=== PATIENT | female | born 1975 | race Caucasian/White ===

== ENCOUNTER 2020-01-29 06:13 | Emergency (ER) | payer SELFPAY ==
--- NOTE | 2020-01-29 06:28 | EDM.PDOC ---
<Giovani Kelly - Last Filed: 01/29/20 06:48> ED HPI GENERAL MEDICAL PROBLEM - General Chief Complaint: Chest Pain Stated Complaint: SHORTNESS OF BREATH, CHEST PAIN Time Seen by Provider: 01/29/20 06:18 - History of Present Illness INITIAL COMMENTS - FREE TEXT/NARRATIVE: History of present illness: [] The patient reports chest pain. About 8 PM last night she started having stabbing chest pain that lasted as long as 10 minutes. The in the right side of her chest and stab to her chest like somebody poking knife through her. They are associated with diaphoresis nausea and shortness of breath. She was going to wait and see how it went but when she talk to her boss about the possibility of taking a day off her boss said she probably should come to the emergency room. This made her more anxious now she is quite excited about the possibility this might be her heart. Coronary vessel risk the patient has a grandfather had heart attacks in his 40s. The patient was a smoker until 2 or 3 years ago. The patient is not diabetic and not treated for hypertension or high cholesterol. She has moderate amount of stress in her life but not particularly more lately and she sleeps pretty well from 8 PM till about 4 AM when she is going to work and longer if she is not going to work. [place] in terms of thromboembolic risk there is no family or personal history of thromboembolic disease. She has not had any recent immobilization cast surgery she is not on exogenous hormones and she is not smoking for 3 years. Review of systems: As per history of present illness and below otherwise all systems reviewed and negative. Past medical history: As per history of present illness and as reviewed below otherwise noncontributory. Surgical history: As per history of present illness and as reviewed below otherwise noncontributory. Social history: No reported history of drug or alcohol abuse. Family history: As per history of present illness and as reviewed below otherwise noncontributory. Physical exam: Constitutional - well developed, well-nourished and in no acute distress HEENT - normocephalic, no evidence of trauma - external nose and mouth normal - no mass in neck and no JVD - mucosae moist EYES - full EOM, PERRL, no icterus - no evidence of inflammation, injection, or drainage Respiratory -left sternal borders reproduces her pain. No respiratory distress, equal bilateral expansion, lungs clear to auscultation and no abnormal lung sounds Cardiovascular - Regular Rhythm with S1 and S2 appreciated and no murmur, gallop or rub. GI - abdomen soft without distension or organomegaly - normal bowel sounds - no guard or rebound Musculoskeletal no gross deformity of long bones or joints - no tenderness, swelling or edema Neurologic - Alert and oriented times four - CN II-XII grossly intact - motor sensory and coordination symmetrically normal Psychiatric - appropriate mood and affect with normal thought content Hematologic - No petechiae or purpura - mucosa appropriate color and sclera not pale - normal nail bed color and refill Integument - no rash or evidence of trauma - normal turgor Diagnostics: [] ED troponin D-dimer and chest x-ray will be done. Therapeutics: [] Ketorolac will be given for this inflammatory chest wall pain Impression: [] It is my impression that she has costochondritis Plan: [] Plan to do lab work EKG chest x-ray and consider in the differential coronary vessel disease pleurisy pneumothorax. Definitive disposition and diagnosis as appropriate pending reevaluation and review of above. The work-up has been initiated and EKG evaluated. The rest of the work-up is pending at the time of the end of my shift and I turned the patient over to my partner Dr. Franklin. Please see his notes regarding further work-up treatment and disposition. Chest Pain Score (Numeric/FACES): 4 - Related Data Allergies Allergy/AdvReac Type Severity Reaction Status Date / Time ampicillin Allergy Rash Verified 01/29/20 06:39 Home Meds: Home Meds . 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 RADIO ELECTRICIAN History: states has hemmorage after vaginal delivery Musculoskeletal History: Reports: Other (See Below) Other Musculoskeletal History: Chronic shoulder pain Neurological History: Reports: Migraines Other Neuro History: has sinus headaches from allergies Psychiatric History: Reports: Depression Other Psychiatric History: states not currently depressed (history of depression/anxiety) Hematologic History: Reports: Anemia, Blood Transfusion(s) Other Hematologic History: states is currently anemic, hx of blood transfusion after vaginal delivery - Infectious Disease History Infectious Disease History: Reports: Chicken Pox - Past Surgical History Head Surgeries/Procedures: Reports: None HEENT Surgical History: Reports: None Cardiovascular Surgical History: Reports: None GI Surgical History: Reports: Appendectomy, Cholecystectomy Female Surgical History: Reports: Oophorectomy Neurological Surgical History: Reports: None Musculoskeletal Surgical History: Reports: None Social & Family History - Family History Family Medical History: No Pertinent Family History #1 Interpretation EKG Interpretation Comments: EKG done 01/29/2020 at 6:24 AM and read reported at 6:26 AM tachycardia heart rate 100 Geneva XII 84 IA interval 150 QT 494 late transition R wave in the precordium and ST and T-segment are negative and normal. No prior for comparison. Impression no obvious acute DC Departure - Departure Disposition: Home, Self-Care 01 Clinical Impression: Atypical chest pain - Discharge Information Instructions: Nonspecific Chest Pain, Adult Referrals: [facility] - Family Practice [Provider Group] - 1 Week (For follow-up of chest pain.) Forms: ED Department Discharge Additional Instructions: You were seen in the emergency department for chest pain. At this point your blood work, EKGs, and x-rays look reassuring. I do not see a dangerous explanation or life-threatening cause of your chest pain at this point and I am comfortable letting you go home. I do want you to follow closely with your primary doctor or our family medicine clinic in the next week or so for reevaluation. You can take [id number] acetaminophen or ibuprofen as directed on the package for pain. Warning signs to come back to the ER include: Worsening chest pain, shortness of breath, lightheadedness, loss of consciousness, or any other new or concerning symptoms. Please return the emergency department immediately if your symptoms worsen or if you feel worse. Thank you for choosing the [facility] emergency department in [place] for your medical needs today. It was a pleasure caring for you. The following information is given to patients seen in the emergency department who are being discharged. This information is to outline your options for follow-up care. We provide all patients seen in our emergency department with a follow-up referral. The need for follow-up, as well as the timing and circumstances, are variable depending upon the specifics of your emergency department visit. If you don't have a primary care physician on staff, we will provide you with a referral. We always advise you to contact your personal physician following an emergency department visit to inform them of the circumstance of the visit and for follow-up with them and/or the need for any referrals to a consulting specialist. The emergency department will also refer you to a specialist when appropriate. This referral assures that you have the opportunity for follow-up care with a specialist. All of these measure are taken in an effort to provide you with optimal care, which includes your follow-up. Under all circumstances we always encourage you to contact your private physician who remains a resource for coordinating your care. When calling for follow-up care, please make the office aware that this follow-up is from your recent emergency room visit. If for any reason you are refused follow-up, please contact the [facility] Emergency Department at and asked to speak to the emergency department charge nurse. If you do not have a primary care physician that is caring for you, you can contact these clinics below to set up an appointment to establish care: [facility] - Primary Care [address] [place] [id number] [place] [address] <Selvin Franklin - Last Filed: 01/29/20 11:27> ED ROS GENERAL - Review of Systems Review Of Systems: See Below ED EXAM, GENERAL - Physical Exam Exam: See Below #2 Interpretation EKG Interpretation Comments: 12-Lead ECG Interpretation Acquired: 10:57 AM Rhythm: Sinus rhythm Rate: 75 bpm Geneva: Normal Intervals: Normal Ectopy: None RV Strain: No obvious RV strain pattern. ST Segments/T-Waves: T wave inversions in V2, seen on previous ECG. Acute Ischemic Changes: None apparent Interpretation: No STEMI Course - Vital Signs Text/Narrative:: I assumed care of this patient at [address] Kelly. In brief, this is a 44-year-old female with a past medical history of migraines presenting with chest pain. Noted to be mildly tachycardic but not hypoxic. Onset of chest pain is around 8:00 last night, described as stabbing and lasting for about 10 minutes at a time, intermittent. Located to the right side of the chest. There is a family history of premature coronary artery disease/DC. Patient was a smoker until a few years ago. Work-up in progress include CBC, CMP, D-dimer, troponin, chest x-ray, twelve-lead EKG. Patient given 15 mg of IV Toradol before I assumed care. I reviewed the twelve-lead EKG, I agree it shows no acu te ischemia. Differential diagnosis includes but is not limited to: ACS, pulmonary embolism, aortic dissection, acute systolic heart failure, pneumonia, pneumothorax, pericardial effusion, pleural effusion, pericarditis, endocarditis, esophageal rupture, GERD, drug-induced chest pain, chest wall pain, and many others. 741: Chest x-ray shows no acute findings and no significant change from prior. CBC shows normal cell lines. I ordered 162 mg of aspirin chewable since the patient has already received ketorolac IV. 752: D-dimer negative. 806: Troponin is negative, electrolytes and renal function are reassuring. We are going to obtain a second 3-hour delta troponin and ECG. 1044: Work-up is essentially negative at this point. Patient has 2 negative troponins. She had two twelve-lead EKGs which did not show an ischemic pattern. She is low risk by the HEART pathway. At this point there is no objective evidence of myocardial ischemia. Negative D-dimer with reassuring vital signs makes pulmonary embolism unlikely. There is no evidence of any pulmonary infiltrate and I have a low suspicion for pneumonia or infection. Chest pain does not radiate to the back and the description of the pain and her overall clinical picture not concerning for either thoracic aortic dissection, Boerhaave syndrome, or congestive heart failure. Her twelve- lead EKG does not exhibit electrical alternans pattern. I have low suspicion for endocarditis or pericarditis based on the description of the pain and the overall clinical picture. She is afebrile and nontoxic. There is no history of recent vomiting or chest wall trauma. She was initially tachycardic when triaged but has since had normal heart rates. Her blood pressure is within normal limits. She has equal radial pulses bilaterally. Given negative work-up and well appearance, patient will be discharged home with primary care follow-up. Plan: Patient is stable to discharge home with outpatient primary care clinic follow-up. Strict emergency department return precautions were provided, patient indicated understanding. All questions were answered prior to departure. Discharged in good condition. HEART Pathway for Early Discharge in Acute Chest Pain RESULT SUMMARY: 0 points HEART Pathway Score Low risk 0.9-1.7% 30-day MACE Repeat troponin at 3 hours and if negative, discharge home with outpatient follow-up. INPUTS: History > 0 = Slightly suspicious EKG > 0 = Normal Age > 0 = <45 Risk factors > 0 = No known risk factors Initial troponin > 0 = ?normal limit Last Recorded V/S: Last Vital Signs Temp 36.1 C 01/29/20 06:13 Pulse 77 01/29/20 11:07 Resp 18 01/29/20 08:19 BP 107/71 01/29/20 11:07 Pulse Ox 96 01/29/20 11:07 - Orders/Labs/Meds Orders: Active Orders 24 hr Category Date Time Status Saline Lock Insert [OM.PC] Stat Oth 01/29/20 06:35 Ordered Labs: Laboratory Tests 01/29/20 01/29/20 01/29/20 Range/Units 07:05 07:05 07:05 WBC 6.56 (4.0-11.0) K/uL RBC 4.68 (4.30-5.90) M/uL Hgb 14.2 (12.0-16.0) g/dL Hct 43.5 (36.0-46.0) % MCV 92.9 (80.0-98.0) fL MCH 30.3 (27.0-32.0) pg MCHC 32.6 (31.0-37.0) g/dL RDW Std Deviation 45.6 (28.0-62.0) fl RDW Coeff of Uyen 13 (11.0-15.0) % Plt Count 257 (150-400) K/uL MPV 10.60 (7.40-12.00) fL Neut % (Auto) 56.3 (48.0-80.0) % Lymph % (Auto) 32.6 (16.0-40.0) % [place] % (Auto) 8.2 (0.0-15.0) % Eos % (Auto) 2.4 (0.0-7.0) % Baso % (Auto) 0.5 (0.0-1.5) % Neut # (Auto) 3.7 (1.4-5.7) K/uL Lymph # (Auto) 2.1 (0.6-2.4) K/uL [place] # (Auto) 0.5 (0.0-0.8) K/uL Eos # (Auto) 0.2 (0.0-0.7) K/uL Baso # (Auto) 0.0 (0.0-0.1) K/uL Nucleated RBC % 0.0 /100WBC Nucleated RBCs # 0 K/uL D-Dimer, Quantitative 0.19 (0.0-0.50) mg/L FEU Sodium 141 (136-145) mmol/L Potassium 3.9 (3.5-5.1) mmol/L Chloride 108 H (98-107) mmol/L Carbon Dioxide 24.5 (21.0-32.0) mmol/L BUN 11 (7.0-18.0) mg/dL Creatinine 0.8 (0.6-1.0) mg/dL Est Cr Clr Drug Dosing 79.11 mL/min Estimated GFR (MDRD) > 60.0 ml/min Glucose 103 (74-106) mg/dL Calcium 8.8 (8.5-10.1) mg/dL Total Bilirubin 0.4 (0.2-1.0) mg/dL AST 23 (15-37) IU/L ALT 34 (14-63) IU/L Alkaline Phosphatase 91 (46-116) U/L Troponin I < 0.050 (0.000-0.056) ng/mL Total Protein 7.7 (6.4-8.2) g/dL Albumin 4.0 (3.4-5.0) g/dL Globulin 3.7 (2.6-4.0) g/dL Albumin/Globulin Ratio 1.1 (0.9-1.6) 16/ Range/Units 10:02 WBC (4.0-11.0) K/uL RBC (4.30-5.90) M/uL Hgb (12.0-16.0) g/dL Hct (36.0-46.0) % MCV (80.0-98.0) fL MCH (27.0-32.0) pg MCHC (31.0-37.0) g/dL RDW Std Deviation (28.0-62.0) fl RDW Coeff of Uyen (11.0-15.0) % Plt Count (150-400) K/uL MPV (7.40-12.00) fL Neut % (Auto) (48.0-80.0) % Lymph % (Auto) (16.0-40.0) % [place] % (Auto) (0.0-15.0) % Eos % (Auto) (0.0-7.0) % Baso % (Auto) (0.0-1.5) % Neut # (Auto) (1.4-5.7) K/uL Lymph # (Auto) (0.6-2.4) K/uL [place] # (Auto) (0.0-0.8) K/uL Eos # (Auto) (0.0-0.7) K/uL Baso # (Auto) (0.0-0.1) K/uL Nucleated RBC % /100WBC Nucleated RBCs # K/uL D-Dimer, Quantitative (0.0-0.50) mg/L FEU Sodium (136-145) mmol/L Potassium (3.5-5.1) mmol/L Chloride (98-107) mmol/L Carbon Dioxide (21.0-32.0) mmol/L BUN (7.0-18.0) mg/dL Creatinine (0.6-1.0) mg/dL Est Cr Clr Drug Dosing mL/min Estimated GFR (MDRD) ml/min Glucose (74-106) mg/dL Calcium (8.5-10.1) mg/dL Total Bilirubin (0.2-1.0) mg/dL AST (15-37) IU/L ALT (14-63) IU/L Alkaline Phosphatase (46-116) U/L Troponin I < 0.050 (0.000-0.056) ng/mL Total Protein (6.4-8.2) g/dL Albumin (3.4-5.0) g/dL Globulin (2.6-4.0) g/dL Albumin/Globulin Ratio (0.9-1.6) Meds: Medications Discontinued Medications Generic Name Dose Route Start Last Admin Trade Name Freq PRN Reason Stop Dose Admin Aspirin 162 mg 01/29/20 07:39 01/29/20 07:46 Aspirin PO 01/29/20 07:40 162 mg ONETIME ONE Administration Ketorolac Tromethamine 15 mg 01/29/20 06:34 01/29/20 07:07 Toradol IVPUSH 01/29/20 06:35 15 mg ONETIME ONE Administration Sodium Chloride 10 ml 01/29/20 06:34 01/29/20 07:07 Saline Flush FLUSH 10 ml ASDIRECTED PRN Administration Keep Vein Open Sodium Chloride 2.5 ml 01/29/20 06:34 01/29/20 07:07 Saline Flush FLUSH 2.5 ml ASDIRECTED PRN Administration Keep Vein Open Departure - Departure Time of Disposition: 10:50 Condition: Good - Discharge Information *PRESCRIPTION DRUG MONITORING PROGRAM REVIEWED*: Not Applicable *COPY OF PRESCRIPTION DRUG MONITORING REPORT IN PATIENT [place]: Not Applicable Sepsis Event Note (ED) - Focused Exam Vital Signs: Vital Signs Temp Pulse Resp BP Pulse Ox 01/29/20 11:07 77 107/71 96 01/29/20 08:19 76 18 113/85 94 L 01/29/20 07:50 77 18 110/71 95 01/29/20 06:13 36.1 C 104 H 16 124/94 H 96
[2020-01-29] MEDS ORDERED: Ketorolac 15 MG/ML SDV IVPUSH ONE (06:34)
[2020-01-29] MEDS ORDERED: Sodium Chloride 0.9% 2.5 ML Syringe FLUSH PRN (06:34)
[2020-01-29] MEDS ORDERED: Sodium Chloride 0.9% 10 ML Syringe FLUSH PRN (06:34)
[2020-01-29] MEDS ORDERED: Aspirin 81 MG Tab.Chew PO ONE (07:39)
--- NOTE | 2020-01-29 07:40 | CR ---
INDICATION: Chest pain TECHNIQUE: Chest 1 views COMPARISON: 06/15/2019 FINDINGS: Cardiovascular and mediastinum: Heart size and vasculature are normal in caliber and appearance. Lungs and pleural spaces: Lungs are clear. No sign of infiltrate or mass. No sign of pleural effusion. No pneumothorax. Bones and soft tissues: No significant findings. IMPRESSION: No acute findings and no significant changes from the prior exam. Dictated by Gregory Barros MD @ Jan 29 2020 7:37AM Signed by Dr. Gregory Barros @ Jan 29 2020 7:38AM
[2020-01-29 07:51] LABS: BLOOD UREA NITROGEN,BUN 11 mg/dL (7.0-18.0); CARBON DIOXIDE,CO2 24.5 mmol/L (21.0-32.0); CHLORIDE,CL 108 mmol/L (98-107); GLUCOSE RANDOM 103 mg/dL (74-106); POTASSIUM,K 3.9 mmol/L (3.5-5.1); SODIUM,NA 141 mmol/L (136-145)
[2020-01-29 11:08] VITALS: BP 107/71; PULSE 77
== END 2020-01-29 11:05 | disposition home or self-care (01) ==
LOC: MW.ED 06:13
DX: M94.0 Chondrocostal junction syndrome [Tietze] (principal); Z88.1 Allergy status to other antibiotic agents; Z90.49 Acquired absence of other specified parts of digestive tract
CPT/HCPCS: 36415; 71045; 80053; 84484; 85025; 85379; 93005; 96374; 99285; A9270; J1885; 93010; 99283